=== PATIENT | female | born 1985 | race Caucasian/White ===

== ENCOUNTER 2024-05-26 11:16 | Outpatient (RCR) | payer MEDICAID, SELFPAY ==
--- NOTE | 2024-05-26 13:31 | PT.OIERPT ---
PT OP Initial Eval Patient Information Outpatient Physical Therapy Treatment Date: 05/26/24 Visit Reasons: Pain in RT ankle Medical Diagnosis: M25.571 Treatment Dx #1: Right Ankle Pain Start of Care: 05/26/24 Date of Onset: October 2023 Smoking Status Smoking Status: Current every day smoker (yes) Cessation Counseling Provided: SONIA was advised that quitting smoking is the single most important factor to protect the health of themselves and their family. Discussed the benefits of quitting smoking with patient. Encouraged patient to quit smoking and provided Cessation assistance materials and resources. Tobacco Use: Cigarette Years smoked: 10 Are you interested in quitting?: No Would you like additional Smoking Cessation Counseling?: No Initial Assessment Subjective: Pt is a 39 y/o female reports of right ankle pain (12/11) since her fracture from a fall. Pt was in a boot for several weeks. Dr Harrison did not order physical therapy. Pt mention she has limitation with standing, first thing in the morning, prolonged walking, and performing recreational activities. 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 Based on patient's objective measurements, Pt will not require skilled physical therapy. Pt was instructed stretches as HEP to perfromed at home to help maintain muscle length. Pt was evaluated and d/c from care; thank you for your referrals. [employer] and [employer] Goals 1) Eval and D/C 2) Follow up with MD [facility] Treatment Plan Eval and D/C Frequency and Duration: 1x Certification Dates: 05/26/24 to 08/24/24 Procedure Charges OP PT Eval Mod Complex 30 minutes: Yes
== END 2024-06-03 23:59 | disposition home or self-care (01) ==
LOC: CPTX 11:16
PROVIDERS: PCP Podiatrist; Referring Provider Podiatrist; Visit Provider Podiatrist
DX: M25.571 Pain in right ankle and joints of right foot (principal); R26.2 Difficulty in walking, not elsewhere classified
CPT/HCPCS: 97162

== ENCOUNTER → 2025-01-23 | Outpatient (CLI) | payer MEDICAID, SELFPAY ==
--- NOTE | 2025-01-23 | XR_ITS ---
Examination: Hand, right 3 views Technique: Hand AP, oblique, lateral 3 views Date and time of exam: January 23, 2025 1130 hours INDICATIONS: Injury to the hand one week ago, hand pain. FINDINGS: Moderate osteopenia. Acute fracture distal aspect middle phalanx fifth digit, 2 mm offset at the fracture site No dislocation IMPRESSION: Acute fractures middle phalanx fifth digit
== END | disposition home or self-care (01) ==
LOC: CDIM 10:56
DX: S62.626A Displaced fracture of middle phalanx of right little finger, initial encounter for closed fracture (principal); X58.XXXA Exposure to other specified factors, initial encounter
CPT/HCPCS: 73130